=== PATIENT | male | born 1960 | race Caucasian/White ===

== ENCOUNTER 2018-12-23 14:04 | Emergency (ER) | payer BC, OTHER ==
[~2018-12-23] VITALS: Ht 185.4 cm; Wt 65.8 kg
[2018-12-23 14:31] LABS: BASOPHILS # (AUTO) 0.1 10^3/uL (0.0-0.1); BASOPHILS % (AUTO) 1 % (0-10); EOSINOPHILS # (AUTO) 1.9 10^3/uL (0.0-0.3); EOSINOPHILS % (AUTO) 19 % (0-10); HEMATOCRIT 38 % (40-54); HEMOGLOBIN 13.7 G/DL (13.3-17.7); LYMPHOCYTES # (AUTO) 1.7 X 10^3 (1.0-4.0); LYMPHOCYTES % (AUTO) 17 % (12-44); MEAN CORPUSCULAR HEMOGLOBIN 30 PG (25-34); MEAN CORPUSCULAR HGB CONC 36 G/DL (32-36); MEAN CORPUSCULAR VOLUME 83 FL (80-99); MEAN PLATELET VOLUME 9.7 FL (7.4-10.4); MONOCYTES # (AUTO) 0.9 X 10^3 (0.0-1.0); MONOCYTES % (AUTO) 9 % (0-12); NEUTROPHILS # (AUTO) 5.4 X 10^3 (1.8-7.8); NEUTROPHILS % (AUTO) 54 % (42-75); PLATELET COUNT 403 10^3/uL (130-400); RED CELL DISTRIBUTION WIDTH 12.8 % (10.0-14.5)
[2018-12-23] MEDS ORDERED: EYE GTTS (14:36)
[2018-12-23] MEDS ORDERED: RT-ALBUINH IH (14:36)
[2018-12-23] MEDS ORDERED: NS IV 1000 ML 1,000 ML IV ONE ×3 (14:40→16:31)
[2018-12-23 14:47] LABS: ALANINE AMINOTRANSFERASE 16 U/L (0-55); ALBUMIN 3.8 GM/DL (3.2-4.5); ALKALINE PHOSPHATASE 68 U/L (40-136); BILIRUBIN,TOTAL 0.4 MG/DL (0.1-1.0); BUN/CREATININE RATIO 8; CARBON DIOXIDE 19 MMOL/L (21-32); CHLORIDE 101 MMOL/L (98-107); CREATININE SERUM 0.87 MG/DL (0.60-1.30); GFR ESTIMATED > 60; GLUCOSE 105 MG/DL (70-105); POTASSIUM 4.5 MMOL/L (3.6-5.0); SODIUM 132 MMOL/L (135-145); TOTAL PROTEIN 6.7 GM/DL (6.4-8.2)
[2018-12-23 14:52] LABS: EOSINOPHILS % (MANUAL) 19 %; LYMPHOCYTES % (MANUAL) 16 %; MONOCYTES % (MANUAL) 8 %; NEUTROPHILS % (MANUAL) 57 %; RBC MORPH NORMAL
--- NOTE | 2018-12-23 15:04 | ED General ---
General Chief Complaint: Dizziness/Syncope Stated Complaint: LUNG CA;VOMITING;PASSING OUT Nursing Triage Note: PT HAVING SYNCOPAL EPISODES, WAS SUPPOSE TO RECIEVE CHEMO YESTERDAY BUT UNABLE. DR WANTED HIM TO STAY D/T HYPOTENSION BUT REFUSED. STATES PASSED OUT TWICE TODAY, B/P INITIALLY 62/55 AFTER WALKING INTO TRIAGE. PT PALE AND WEAK. STATES HAD DIARRHEA FOR 1 WEEK Nursing Sepsis Screen: No Definite Risk Source of Information: Patient, Other (Friend) Exam Limitations: No Limitations History of Present Illness Date Seen by Provider: Dec 23, 2018 Time Seen by Provider: 14:10 Initial Comments This 58-year-old man with lung cancer presents to the emergency room due to multiple episodes of syncope and near syncope. He receives his oncology treatments from Dr. Brennan in [place] in his primary care provider is Dr. Spain also in [place]. Patient has had diarrhea for about one week. He also reports very poor appetite and has trouble keeping up on nutrition and fluids. He is brought in today by his employer after having a syncopal episode at work. Initial blood pressure in triage was 62/55. He is afebrile. He denies other signs or symptoms of acute illness. He is on Opdivo. He was to get a treatment yesterday but had a syncopal episode and therefore did not. The oncologists office advised him to stay for assessment and treatment but he declined. Allergies and Home Medications Allergies Coded Allergies: No Known Drug Allergies (Unverified , 12/23/18) Home Medications Albuterol Sulfate 1 Puff Puff, 2 PUFF IH Q4H, (Reported) 1 PUFF = 90 MCG Patient Home Medication List Home Medication List Reviewed: Yes Review of Systems Review of Systems Constitutional: see HPI, weakness EENTM: no symptoms reported Respiratory: see HPI Cardiovascular: no symptoms reported Gastrointestinal: see HPI Genitourinary: no symptoms reported Musculoskeletal: no symptoms reported Skin: no symptoms reported Psychiatric/Neurological: No Symptoms Reported Hematologic/Lymphatic: See HPI Immunological/Allergic: see HPI Past [id number] Hx Patient Social History Alcohol Use: Denies Use Recreational Drug Use: No Smoking Status: Former Smoker Recent Foreign Travel: No Contact w/Someone Who Travel: No Recent Infectious Disease Expo: No Recent Hopitalizations: Yes (CHEMO/LUNG CA) Seasonal Allergies Seasonal Allergies: No Past Medical History Surgeries: No Respiratory: Yes (LUNG CA) Cardiac: No Neurological: No Genitourinary: No Gastrointestinal: Yes (poor appetite) Musculoskeletal: No Endocrine: No Cancer: Yes Lung Did You Recieve Any Treatments: Yes What Type of Treatment Did You: Chemotherapy Psychosocial: Yes Integumentary: No Physical Exam Vital Signs Vital Signs - First Documented 12/23/18 14:10 Temp 96.1 Pulse 95 Resp 17 B/P (MAP) 100/70 (80) Pulse Ox 94 Capillary Refill : Less Than 3 Seconds Height, Weight, BMI Height: 6'1.00" Weight: 145lbs. oz. 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 Norm as Tested Skin: Normal Color, Warm/Dry Progress/Results/Core Measures Suspected Sepsis Recent Fever Within 48 Hours: No Infection Criteria Present: None New/Unexplained Altered Menta: No Sepsis Screen: No Definite Risk SIRS Temperature:96.1 Pulse: 95 Respiratory Rate: 17 Laboratory Tests 12/23/18 14:24: White Blood Count 10.0 Blood Pressure 100 /70 Mean: 80 Laboratory Tests 12/23/18 14:24: Creatinine 0.87, Platelet Count 403H, Total Bilirubin 0.4 Results/Orders Lab Results Laboratory Tests Test 12/23/18 14:24 12/23/18 17:20 Range/Units White Blood Count 10.0 4.3-11.0 10^3/uL Red Blood Count 4.60 4.35-5.85 10^6/uL Hemoglobin 13.7 13.3-17.7 G/DL Hematocrit 38 L 40-54 % Mean Corpuscular Volume 83 80-99 FL Mean Corpuscular Hemoglobin 30 25-34 PG Mean Corpuscular Hemoglobin Concent 36 32-36 G/DL Red Cell Distribution Width 12.8 10.0-14.5 % Platelet Count 403 H 130-400 10^3/uL Mean Platelet Volume 9.7 7.4-10.4 FL Neutrophils (%) (Auto) 54 42-75 % Lymphocytes (%) (Auto) 17 12-44 % Monocytes (%) (Auto) 9 0-12 % Eosinophils (%) (Auto) 19 H 0-10 % Basophils (%) (Auto) 1 0-10 % Neutrophils # (Auto) 5.4 1.8-7.8 X 10^3 Lymphocytes # (Auto) 1.7 1.0-4.0 X 10^3 Monocytes # (Auto) 0.9 0.0-1.0 X 10^3 Eosinophils # (Auto) 1.9 H 0.0-0.3 10^3/uL Basophils # (Auto) 0.1 0.0-0.1 10^3/uL Neutrophils % (Manual) 57 % Lymphocytes % (Manual) 16 % Monocytes % (Manual) 8 % Eosinophils % (Manual) 19 % Blood Morphology Comment NORMAL Sodium Level 132 L 135-145 MMOL/L Potassium Level 4.5 3.6-5.0 MMOL/L Chloride Level 101 98-107 MMOL/L Carbon Dioxide Level 19 L 21-32 MMOL/L Anion Gap 12 5-14 MMOL/L Blood Urea Nitrogen 7 7-18 MG/DL Creatinine 0.87 0.60-1.30 MG/DL Estimat Glomerular Filtration Rate > 60 BUN/Creatinine Ratio 8 Glucose Level 105 70-105 MG/DL Calcium Level 9.0 8.5-10.1 MG/DL Corrected Calcium 9.2 8.5-10.1 MG/DL Magnesium Level 2.2 1.8-2.4 MG/DL Total Bilirubin 0.4 0.1-1.0 MG/DL Aspartate Amino Transf (AST/SGOT) 30 5-34 U/L Alanine Aminotransferase (ALT/SGPT) 16 0-55 U/L Alkaline Phosphatase 68 40-136 U/L Total Protein 6.7 6.4-8.2 GM/DL Albumin 3.8 3.2-4.5 GM/DL Urine Color YELLOW Urine Clarity CLEAR Urine pH 5 5-9 Urine Specific [place] 1.015 L 1.016-1.022 Urine Protein 1+ H NEGATIVE Urine Glucose (UA) NEGATIVE NEGATIVE Urine Ketones 1+ H NEGATIVE Urine Nitrite NEGATIVE NEGATIVE Urine Bilirubin NEGATIVE NEGATIVE Urine Urobilinogen NORMAL NORMAL MG/DL Urine Leukocyte Esterase NEGATIVE NEGATIVE Urine RBC (Auto) 1+ H NEGATIVE Urine RBC RARE /HPF Urine WBC RARE /HPF Urine Crystals PRESENT H /LPF Urine Calcium Oxalate Crystals LARGE H /LPF Urine Bacteria NEGATIVE /HPF Urine Casts NONE /LPF Urine Mucus MODERATE H /LPF Urine Culture Indicated NO My Orders Orders - TU SIMON MD Cbc With Automated Diff (12/23/18 14:09) Comprehensive Metabolic Panel (12/23/18 14:09) Ua Culture If Indicated (12/23/18 14:09) Saline Lock/Iv-Start (12/23/18 14:09) Manual Differential (12/23/18 14:24) Magnesium (12/23/18 14:40) Saline Lock/Iv-Start (12/23/18 14:40) Saline Lock/Iv-Start (12/23/18 14:40) Ns Iv 1000 Ml (Sodium Chloride 0.9%) (12/23/18 14:40) Ekg Tracing (12/23/18 14:40) Monitor-Rhythm Ecg Trace Only (12/23/18 14:40) Saline Lock/Iv-Start (12/23/18 15:04) Ns Iv 1000 Ml (Sodium Chloride 0.9%) (12/23/18 15:04) Saline Lock/Iv-Start (12/23/18 16:31) Ns Iv 1000 Ml (Sodium Chloride 0.9%) (12/23/18 16:31) Medications Given in ED Current Medications Medications Dose Ordered Sig/Andrew Route Start Time Stop Time Status Last Admin Dose Admin Sodium Chloride 1,000 ml @ 0 mls/hr Q0M ONCE IV 12/23/18 14:40 12/23/18 14:42 DC 12/23/18 14:45 1,000 MLS/HR Sodium Chloride 1,000 ml @ 0 mls/hr Q0M ONCE IV 12/23/18 15:04 12/23/18 15:06 DC 12/23/18 15:35 1,000 MLS/HR Sodium Chloride 1,000 ml @ 0 mls/hr Q0M ONCE IV 12/23/18 16:31 12/23/18 16:32 DC 12/23/18 16:32 1,000 MLS/HR Vital Signs/I&O 12/23/18 12/23/18 14:10 17:30 Temp 96.1 Pulse 95 88 Resp 17 17 B/P (MAP) 100/70 (80) 98/72 (81) Pulse Ox 94 94 Capillary Refill : Less Than 3 Seconds Blood Pressure Mean: 80 Progress Note : Progress Note Patient was notably hypotensive during assessment. He received 2 L of IV fluid. He still could not urinate. A third liter of IV fluid was administered. He did finally urinate. Standing blood pressure after 2 L of fluid was 98 systolic. Patient felt much better and his color improved significantly. He was anxious to be discharged home at that point. Workup was otherwise unremarkable. Syncope was felt to be simply due to hypovolemia from diarrhea and poor intake. He is advised to follow-up with his primary care provider and oncologist to talk about treating the appetite suppression. ECG Initial ECG Impression Date: Dec 23, 2018 Initial ECG Impression Time: 14:48 Initial ECG Rate: 81 Initial ECG Rhythm: Normal Sinus Initial ECG Intervals: Normal Initial ECG Impression: Normal Comment Normal sinus rhythm with no ST elevation or depression. No abnormal intervals or axis deviation. Departure Impression Primary Impression: Hypovolemia Additional Impressions: Syncope Qualified Codes: R55 - Syncope and collapse Diarrhea Qualified Codes: R19.7 - Diarrhea, unspecified Poor appetite Disposition: 01 HOME, SELF-CARE Condition: Improved Departure-Patient Inst. Decision time for Depature: 17:23 Patient Instructions: Diarrhea in Adolescents and Adults, Syncope (Fainting) ( DC) Add. Discharge Instructions: Drink plenty of clear liquids. Follow-up with your primary care provider soon as possible. Return to care if you have worsening symptoms. All discharge instructions reviewed with patient and/or family. Voiced understanding. TU SIMON MD Dec 23, 2018 15:04
--- NOTE | 2018-12-23 16:30 | NUR ---
PT IS UNABLE TO VOID B/P /. DR JARAMILLO NOTIFIED
[2018-12-23 17:29] LABS: BILIRUBIN,URINE NEGATIVE (NEGATIVE); CLARITY,URINE CLEAR; COLOR,URINE YELLOW; GLUCOSE, URINE (UA) NEGATIVE (NEGATIVE); KETONES,URINE 1+ (NEGATIVE); LEUKOCYTE ESTERASE ,URINE NEGATIVE (NEGATIVE); NITRITE,URINE NEGATIVE (NEGATIVE); PH,URINE 5 (5-9); PROTEIN,URINE 1+ (NEGATIVE); UROBILINOGEN,URINE NORMAL (NORMAL)
[2018-12-23 17:30] VITALS: BP 98/72
[2018-12-23 17:37] LABS: BACTERIA,URINE NEGATIVE /HPF; CALCIUM OXALATE CRYSTALS,UR LARGE /LPF; RBC,URINE RARE /HPF; WBC,URINE RARE /HPF
== END 2018-12-23 17:31 | disposition home or self-care (01) ==
LOC: ER 14:06
DX: E86.1 Hypovolemia (principal); R55 Syncope and collapse; R19.7 Diarrhea, unspecified; R63.8 Other symptoms and signs concerning food and fluid intake; Z79.51 Long term (current) use of inhaled steroids; Z87.891 Personal history of nicotine dependence; Z92.21 Personal history of antineoplastic chemotherapy; Z85.118 Personal history of other malignant neoplasm of bronchus and lung; Z87.19 Personal history of other diseases of the digestive system
CPT/HCPCS: 36415; 80053; 81000; 83735; 85007; 85027; 93005; 93041